=== PATIENT | female | born 1985 | race Caucasian/White ===

== ENCOUNTER 2019-07-18 21:00 | Emergency (ER) | payer MEDICARE, MEDICAID ==
[2019-07-18] MEDS ORDERED: Acetaminophen 325 MG TAB ONE (22:38)
[2019-07-18 23:13] LABS: Anion Gap 22 mmol/L (10-20); BUN (Urea Nitrogen) 29 mg/dL (7.0-18.7); Calc. Creatinine Clearance 0 mL/min (70-130); Calcium 9.5 mg/dL (7.8-10.44); Carbon Dioxide 28 mmol/L (22-29); Chloride 91 mmol/L (98-107); Estimated GFR-MDRD 6; Glucose 118 mg/dL (70-105); Potassium 4.2 mmol/L (3.5-5.1); Sodium 137 mmol/L (136-145)
[2019-07-19] MEDS ORDERED: Divalproex Sodium DR 500 MG TAB PO SCH (05:45)
[2019-07-19] MEDS ORDERED: Sevelamer Carbonate 800 MG TAB PO SCH (08:00)
[2019-07-19] MEDS ORDERED: risperiDONE 1 MG TAB ONE (20:48)
[2019-07-20] MEDS ORDERED: Ziprasidone 20 MG CAP PO SCH (07:45)
[2019-07-20] MEDS ORDERED: Divalproex Sodium DR 500 MG TAB PO SCH (07:45)
--- NOTE | 2019-07-20 10:21 | CON ---
DATE OF CONSULTATION: HISTORY OF PRESENT ILLNESS: Ms. Key is a 34-year-old white female with ESRD, and then, currently at the ER hold and the plan is to transfer her to [facility]. She has been having suicidal ideation. We are consulted for maintenance hemodialysis. I have scheduled her for hemodialysis this a.m. She voices no new complaints today. PHYSICAL EXAMINATION: VITAL SIGNS: Blood pressure is noted at 109/74, heart rate 92, respiratory rate 18, O2 saturation 93%. GENERAL: Awake, alert, comfortable, ambulatory, not in distress. SKIN: Adequate turgor. HEENT: She has pinkish conjunctivae. Anicteric sclerae. NECK: No neck mass. No carotid bruits. No JVD. CHEST: No deformities. LUNGS: Clear breath sounds. HEART: Normal sinus rhythm. No murmur. No gallops. No rubs. ABDOMEN: Globular, soft, nontender. No masses. EXTREMITIES: No edema. No deformities. MEDICATIONS: Medications of July 20, 2019, reviewed. LABORATORY DATA: Laboratories of July 18, 2019; sodium 137, potassium 4.2, chloride 91, carbon dioxide 28, BUN 29, creatinine 7.86, glucose 118, calcium 9.5. ASSESSMENT/PLAN: 1. Suicidal ideation-transfer to inpatient psychiatric hospital in [place]. Continue supportive care. 2. End-stage renal disease, stable. We will continue current Thursday, Thursday, and Thursday hemodialysis. Fluid removal only as tolerated by this patient. Overall, agree with current management. Job ID: [id number]
--- NOTE | 2019-07-22 09:32 | PRG ---
DATE OF SERVICE: 07/22/2019 SUBJECTIVE: Ms. Key is a 34-year-old white female with ESRD, on maintenance hemodialysis. She is undergoing hemodialysis. She is currently at the ER hold for possible transfer to [facility] in [place] due to suicidal ideation. No new complaints today. She is currently tolerating dialysis. OBJECTIVE: VITAL SIGNS: Blood pressure is noted at 120/70, heart rate 70. GENERAL: Awake, alert, comfortable, not in distress. SKIN: Adequate turgor. HEENT: She has a pinkish conjunctivae. Anicteric sclerae. NECK: No neck mass. No carotid bruits. No JVD. CHEST: No deformities. LUNGS: Clear breath sounds. HEART: Normal sinus rhythm. No murmur. No gallops. No rubs. ABDOMEN: Globular, soft, nontender, no masses. EXTREMITIES: No edema, no deformities. MEDICATIONS: Medications of July 22, 2019, reviewed. LABORATORY DATA: July 18, 2019, BUN 29, creatinine 7.86, potassium 4.2. ASSESSMENT AND PLAN: 1. Endstage renal disease-tolerating hemodialysis. Continue Thursday, Thursday, and Thursday dialysis with this patient. Fluid removal as tolerated. 2. Suicidal ideation for transfer to inpatient psychiatry in [place]. Awaiting bed placement. 3. Agree with current management. Job ID: [id number]
[2019-07-22] MEDS ORDERED: Divalproex Sodium DR 500 MG TAB PO SCH (18:30)
[2019-07-23 05:36] LABS: Mean Corpuscular HGB CONC 33.2 g/dL (32.0-36.0); Mean Corpuscular Hemoglobin 33.2 pg (27.0-31.0); Mean Platelet Volume 8.4 fL (7.4-10.4); Platelet Count 135 thou/uL (130-400); RBC Distribution Width 12.3 % (11.5-14.5); White Blood Cell (WBC) Count 10.7 thou/uL (4.8-10.8)
[2019-07-23 05:42] LABS: Anion Gap 15 mmol/L (10-20); BUN (Urea Nitrogen) 34 mg/dL (7.0-18.7); Calc. Creatinine Clearance 0 mL/min (70-130); Calcium 8.2 mg/dL (7.8-10.44); Carbon Dioxide 28 mmol/L (22-29); Chloride 98 mmol/L (98-107); Estimated GFR-MDRD 7; Glucose 87 mg/dL (70-105); Sodium 136 mmol/L (136-145)
[2019-07-23 06:09] LABS: Band 1 % (5-11); Eosinophils 9 % (0-10); Lymphocytes 16 % (21-51); MDiff Complete? YES; Monocytes 14 % (0-10); Neutrophil 60 % (42-75); Platelet Morphology Comment Appears Adequate
[2019-07-23] MEDS ORDERED: Divalproex Sodium DR 500 MG TAB PO SCH (09:00)
[2019-07-24] MEDS ORDERED: risperiDONE 1 MG TAB PO SCH (21:30)
--- NOTE | 2019-07-25 09:28 | PRG ---
DATE OF SERVICE: 07/25/2019 SERVICE: Renal Medicine. SUBJECTIVE: Ms. Key is a 34-year-old white female with known history of ESRD and currently on maintenance hemodialysis. She is down in the emergency room and awaiting transfer to [facility] for inpatient psychiatry. She is currently undergoing dialysis. She is tolerating said procedure. No other complaints. No chest pain or shortness of breath. OBJECTIVE: VITAL SIGNS: Blood pressure 120/87, heart rate 75. GENERAL: Awake, alert, and comfortable, not in distress. SKIN: Adequate turgor. HEENT: She has pinkish conjunctivae. Anicteric sclerae. NECK: No neck mass. No carotid bruits. No JVD. CHEST: No deformities. LUNGS: Clear breath sounds. No wheezing. No crackles. HEART: Normal sinus rhythm. No murmur. No gallops. No rubs. ABDOMEN: Globular, soft, nontender. No masses. EXTREMITIES: No edema. No deformities. MEDICATIONS: Medications of July 25, 2019, were reviewed. LABORATORY DATA: Laboratories of July 23, 2019; white count 10.7, hemoglobin 11. Sodium 136, potassium 5, chloride 98, carbon dioxide 28, BUN 34, creatinine 6.54, glucose 87, calcium 8.2. ASSESSMENT AND PLAN: 1. End-stage renal disease, stable. We will continue current Thursday, Thursday, and Thursday hemodialysis. Fluid removal only as tolerated. 2. Suicidal ideation-for possible transfer to [facility] for inpatient psychiatric placement. 3. Agree with current management. Job ID: [id number]
[2019-07-25] MEDS ORDERED: risperiDONE 1 MG TAB PO SCH (18:30)
== END 2019-07-26 02:21 | disposition short-term general hospital (02) ==
LOC: ERS 21:00
DX: F32.9 Major depressive disorder, single episode, unspecified (principal); I12.0 Hypertensive chronic kidney disease with stage 5 chronic kidney disease or end stage renal disease; N18.6 End stage renal disease; E78.5 Hyperlipidemia, unspecified; F31.9 Bipolar disorder, unspecified; F43.10 Post-traumatic stress disorder, unspecified; Z79.899 Other long term (current) drug therapy; Z99.2 Dependence on renal dialysis
CPT/HCPCS: 36415; 80048; 85025; 90935; G0257

== ENCOUNTER 2019-10-27 17:29 | Observation (INO) | payer MEDICARE, MEDICAID ==
[2019-10-27 18:07] LABS: #Basophils 0.1 thou/uL (0.0-0.2); #Eosinphils 0.7 thou/uL (0.0-0.7); #Lymphocytes 1.5 thou/uL (1.20-3.40); #Monocytes 1.1 thou/uL (0.11-0.59); #Neutrophils 7.8 thou/uL (1.40-6.50); %Basophils 0.8 % (0.0-1.0); %Eosinophils 6.3 % (0.0-10.0); %Lymphocytes 13.7 % (21.0-51.0); %Monocytes 9.9 % (0.0-10.0); %Neutrophils 69.4 % (42.0-75.0); Hemoglobin 12.6 g/dL (12.0-16.0); Mean Corpuscular HGB CONC 32.3 g/dL (32.0-36.0); Mean Corpuscular Hemoglobin 32.4 pg (27.0-31.0); Platelet Count 280 thou/uL (130-400); RBC Distribution Width 12.6 % (11.5-14.5); White Blood Cell (WBC) Count 11.2 thou/uL (4.8-10.8)
--- NOTE | 2019-10-27 18:12 | RAD ---
Chest one view HISTORY: Dyspnea. COMPARISON: 02/21/2019. FINDINGS: Cardiac silhouette and pulmonary vasculature are unremarkable. Mediastinum is midline. [place] llic stents over the right axillary and subclavian vessels. No lobar consolidation or evidence of pneumothorax. Fluid and gaseous distention of the stomach. IMPRESSION: No active cardiopulmonary abnormalities are demonstrated.
[2019-10-27] MEDS ORDERED: Ondansetron ODT 4 MG TAB ONE (19:51)
[2019-10-27 19:56] LABS: ALT (SGPT) 10 U/L (8-55); AST (SGOT) 16 U/L (5-34); Albumin 4.4 g/dL (3.5-5.0); Alkaline Phosphatase 91 U/L (40-110); Anion Gap 29 mmol/L (10-20); BUN (Urea Nitrogen) 59 mg/dL (7.0-18.7); Bilirubin, Total 0.4 mg/dL (0.2-1.2); Calc. Creatinine Clearance 0 mL/min (70-130); Calcium 8.8 mg/dL (7.8-10.44); Carbon Dioxide 21 mmol/L (22-29); Chloride 94 mmol/L (98-107); Estimated GFR-MDRD 3; Globulin 3.5 g/dL (2.4-3.5); Glucose 86 mg/dL (70-105); Potassium 6.3 mmol/L (3.5-5.1); Protein, Total 7.9 g/dL (6.0-8.3); Sodium 138 mmol/L (136-145)
[2019-10-27] MEDS ORDERED: Dextrose 50% Abboject 50 ML SYRINGE ONE (20:28)
[2019-10-27] MEDS ORDERED: Insulin Regular 300 UNITS/3 ML VIAL ONE ×2 (20:28→20:31)
[2019-10-27] MEDS ORDERED: Calcium Chloride 1 GM/10 ML Abboject SYRINGE ONE (20:28)
[2019-10-27 23:06] LABS: Anion Gap 30 mmol/L (10-20); BUN (Urea Nitrogen) 59 mg/dL (7.0-18.7); Calc. Creatinine Clearance 0 mL/min (70-130); Carbon Dioxide 21 mmol/L (22-29); Chloride 93 mmol/L (98-107); Estimated GFR-MDRD 3; Glucose 70 mg/dL (70-105); Potassium 6.5 mmol/L (3.5-5.1); Sodium 137 mmol/L (136-145)
[2019-10-27] MEDS ORDERED: Insulin Regular 300 UNITS/3 ML VIAL IVP SCH (23:45)
[2019-10-27] MEDS ORDERED: Acetaminophen 500 MG TAB ONE (23:51)
[2019-10-27] MEDS ORDERED: Calcium Gluconate 4.6 MEQ in Sodium Chloride 0.9% 100 ML IVPB SCH (23:59)
[2019-10-28] MEDS ORDERED: Guaifenesin DM 100-10/5 ML UDCUP PO PRN (00:11)
[2019-10-28] MEDS ORDERED: Acetaminophen 325 MG TAB PO PRN (00:11)
[2019-10-28] MEDS ORDERED: Bisacodyl 10 MG SUPP PR PRN (00:11)
[2019-10-28] MEDS ORDERED: hydrALAZINE 20 MG/ML VIAL SLOW IVP PRN (00:11)
[2019-10-28] MEDS ORDERED: cloNIDine 0.1 MG TAB PO PRN (00:11)
[2019-10-28] MEDS ORDERED: Bisacodyl 5 MG TAB PO PRN (00:11)
[2019-10-28] MEDS ORDERED: Promethazine HCl 12.5 MG in Sodium Chloride 0.9% 50 ML IVPB PRN (00:11)
[2019-10-28] MEDS ORDERED: Benzonatate 100 MG CAP PO PRN (00:14)
--- NOTE | 2019-10-28 00:14 | PDOC.HHP ---
Hospitalist HPI - History of Present Illness Cough, eye discharge, congestion History of Present Illness: Patient is a 34 year old female with PMH ESRD, [place] syndrome who presents to ED for cough, congestion, eye discharge, malaise/fatigue, rhinorrhea, myalgias. Patient receives HD MWF w/ Dr Evans, missed her HD session last scheduled session due to symptoms. In ED, patient noted to have HTN w/ SBP in 170s, also labs significant for hyperkalemia to 6.3, EKG reviewed by me, was noted at the time to be sinus, rate 94 w/ slightly peaked T waves, treated in ED with calcium chloride, repeat value checked and is 6.5 now, WBC 11, CO2 21, BUN 59, flu a/b negative, CXR checked and without acute processes Dr Evans consulted by ED and requested kayexelate with plan for dialysis in aM, patient admitted to [facility] for further workup. ED Course: Current meds DULoxetine Sofia Oct 27, 2019 19:27 JOHN Cueva Victoria capsule,delayed release(DR/EC) : Strength - 20 mg : ORAL Patient Dose: 20 mg Oral 2 times a day. QUEtiapine Sofia Oct 27, 2019 19:28 JOHN Cueva Victoria tablet : Strength - 300 mg : ORAL Patient Dose: 300 mg Oral once a day (at bedtime). doxycycline hyclate oral ThuOct 27, 2019 19:28 JOHN Cueva Victoria tablet : Strength - 100 mg : ORAL Patient Dose: 100 mg Oral 2 times a day. VITAL SIGNS ThuOct 27, 2019 23:55 JOHN Cueva Victoria BP: 179/104 MAP: 129 Pulse: 81 Resp: 19 Temp: 97.9 (Oral) Pain: 8 O2 sat: 99 on (Room Air) Time: 10/27/2019 23:55. Hospitalist ROS - Review of Systems Constitutional: reports: sweats, weakness, malaise. denies: fever, chills Eyes: reports: other (bilateral discharge). denies: pain, vision change ENT: reports: nose discharge, nose congestion, throat pain. denies: mouth pain , mouth swelling, throat swelling Respiratory: reports: cough. denies: shortness of breath, pleuritic pain Cardiovascular: denies: chest pain, palpitations Gastrointestinal: reports: nausea, vomiting, diarrhea. denies: abdominal pain Musculoskeletal: reports: other (diffuse myalgia) Skin: denies: rash, lesions Neurological: denies: weakness, numbness All other systems reviewed; all pertinent +/- noted in HPI/Subj Hospitalist History - Past Medical History Other Medical History: el syndrome ESRD, MWF, HD congenital heart defect pancreatitis HLD - Past Surgical History Other Surgical History: Surgical history of spinal surgery, 2 peritoneal dialysis catheter placements that were later removed due to infection. hemodialysis port placement <LT>AMP> removal., Surgical history of dialysis shunt, to the right upper extremity, Notes: PT ALSO HAS SHUNT IN E THAT IS NO LONGER WORKING, Surgical history of oophorectomy, of the right ovary, Surgical history of orthopedic surgery, RIGHT HIP, Surgical history of thyroidectomy, Date of surgery 2016. - Family History Family History: reports: no pertinent history - Social History Other Social History: Patient denies alcohol use, Patient denies drug use, Patient has no smoking history, Lives in [facility], Name of institution [facility]. verified on 07/02/19. - Exam General Appearance: NAD, awake alert Eye: PERRL, anicteric sclera ENT: normocephalic atraumatic, no oropharyngeal lesions, moist mucosa Neck: supple, symmetric, no JVD, no thyromegaly, no lymphadenopathy, no carotid bruit Heart: RRR, no murmur, no gallops, no rubs, normal peripheral pulses Respiratory: CTAB, no wheezes, no rales, no ronchi, normal chest expansion, no tachypnea, normal percussion Gastrointestinal: soft, non-tender, non-distended, normal bowel sounds, no palpable masses, no hepatomegaly, no splenomegaly, no bruit Extremities: no cyanosis, no clubbing, no edema Skin: normal turgor, no lesions, no rashes Neurological: cranial nerve grossly intact, normal sensation to touch, no weakness, no focal deficits, no new deficit Musculoskeletal: normal tone, normal strength, no muscle wasting Psychiatric: normal affect, normal behavior, A&O x 3 Hospitalist Results - Labs Result Diagrams: 10/27/19 17:58 10/27/19 22:42 Lab results: WBC 11.2 thou/uL (4.8-10.8) H 10/27/19 17:58 Hgb 12.6 g/dL (12.0-16.0) 10/27/19 17:58 Hct 39.2 % (36.0-47.0) 10/27/19 17:58 MCV 100.0 fL (78.0-98.0) H 10/27/19 17:58 Plt Count 280 thou/uL (130-400) 10/27/19 17:58 Neutrophils % 69.4 % (42.0-75.0) 10/27/19 17:58 Sodium 137 mmol/L (136-145) 10/27/19 22:42 Potassium 6.5 mmol/L (3.5-5.1) H 10/27/19 22:42 Chloride 93 mmol/L (98-107) L 10/27/19 22:42 Carbon Dioxide 21 mmol/L (22-29) L 10/27/19 22:42 BUN 59 mg/dL (7.0-18.7) H 10/27/19 22:42 Creatinine 13.99 mg/dL (0.6-1.1) H 10/27/19 22:42 Glucose 70 mg/dL (70-105) 10/27/19 22:42 Calcium 9.0 mg/dL (7.8-10.44) 10/27/19 22:42 Total Bilirubin 0.4 mg/dL (0.2-1.2) 10/27/19 17:56 AST 16 U/L (5-34) 10/27/19 17:56 ALT 10 U/L (8-55) 10/27/19 17:56 Alkaline Phosphatase 91 U/L (40-110) 10/27/19 17:56 Troponin I Less than 0.010 ng/mL (< 0.028) 10/27/19 17:58 Serum Total Protein 7.9 g/dL (6.0-8.3) 10/27/19 17:56 Albumin 4.4 g/dL (3.5-5.0) 10/27/19 17:56 Hospitalist H&P A/P - Plan Plan: Patient is a 34 year old female with PMH ESRD, El syndrome who presents to ED for cough, congestion, eye discharge, malaise/fatigue, rhinorrhea, myalgias. # viral URI - cough, congestion, eye discharge, malaise/fatigue, rhinorrhea, myalgias most likely due to viral UTI, flu checked and negative, continue supportive care # ESRD w/ missed HD - causing patient HTN, hyperkalemia, acidosis, Dr Evans consulted and plans for HD in AM # Hyperkalemia - due to missed HD, got Calcium chloride and calcium gluconate in ED, repeat K 6.5, give insulin/d50, repeat w/ aM labs, Dr Evans to dialyze in AM # metabolic acidosis - due to missed HD, resume in AM # HTn - likely volume overload due to missed HD, no peripheral or pleurla edema - PRN HTN meds - dialyze in AM # WBC - likely leukemoid reaction to viral URI
[2019-10-28] MEDS: Dextrose 50% Abboject 50 ML SYRINGE SLOW IVP SCH ×2 (01:07→04:58)
[2019-10-28 01:18] VITALS: BMI 30.1
[2019-10-28] MEDS: Ondansetron PF 4 MG/2 ML Vial IVP PRN ×2 (01:18→08:25)
[2019-10-28] MEDS: HYDROcodone/Acetaminophen 5/325 mg Tablet PO PRN ×2 (01:18→08:25)
[2019-10-28 04:55] LABS: #Basophils 0.1 thou/uL (0.0-0.2); #Eosinphils 0.3 thou/uL (0.0-0.7); #Lymphocytes 1.1 thou/uL (1.20-3.40); #Monocytes 0.8 thou/uL (0.11-0.59); #Neutrophils 8.3 thou/uL (1.40-6.50); %Basophils 0.6 % (0.0-1.0); %Eosinophils 2.8 % (0.0-10.0); %Lymphocytes 10.5 % (21.0-51.0); %Monocytes 7.9 % (0.0-10.0); %Neutrophils 78.3 % (42.0-75.0); Hemoglobin 11.1 g/dL (12.0-16.0); Mean Corpuscular HGB CONC 32.2 g/dL (32.0-36.0); Mean Corpuscular Hemoglobin 32.5 pg (27.0-31.0); Mean Platelet Volume 8.1 fL (7.4-10.4); Platelet Count 232 thou/uL (130-400); RBC Distribution Width 12.7 % (11.5-14.5); Red Blood Cell (RBC) Count 3.41 mill/uL (4.20-5.40); White Blood Cell (WBC) Count 10.6 thou/uL (4.8-10.8)
[2019-10-28 05:17] LABS: Anion Gap 26 mmol/L (10-20); BUN (Urea Nitrogen) 62 mg/dL (7.0-18.7); Calc. Creatinine Clearance 5 mL/min (70-130); Calcium 9.6 mg/dL (7.8-10.44); Carbon Dioxide 23 mmol/L (22-29); Chloride 97 mmol/L (98-107); Estimated GFR-MDRD 3; Glucose 93 mg/dL (70-105); Magnesium 2.6 mg/dL (1.6-2.6); Potassium 4.9 mmol/L (3.5-5.1); Sodium 141 mmol/L (136-145)
[2019-10-28 05:28] LABS: Phosphorus 12.5 mg/dL (2.3-4.7)
[2019-10-28] MEDS ORDERED: Levothyroxine Sodium 50 MCG TAB PO SCH (06:00)
[2019-10-28] MEDS ORDERED: Heparin 5,000 UNITS/ML VIAL SC SCH (09:00)
[2019-10-28] MEDS ORDERED: Polyethylene Glycol 3350 17 GM Packet PO SCH (09:00)
[2019-10-28] MEDS ORDERED: LURASIDONE HCL PO SCH (09:00)
[2019-10-28] MEDS ORDERED: Mirtazapine 15 MG TAB PO SCH (09:00)
--- NOTE | 2019-10-28 10:23 | CON ---
DATE OF CONSULTATION: HISTORY OF PRESENT ILLNESS: Ms. 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 She has generalized malaise. At the ER, she was given Kayexalate, insulin, and calcium gluconate for the elevated potassium. We are now following up this patient for management of her ESRD. She is currently undergoing hemodialysis. My plan is to do a 3-1/2 hour dialysis with this patient using 2.0 potassium bath. REVIEW OF SYSTEMS: Positive for generalized malaise, appetite is decreased. No nausea. No vomiting. Denies any fever or chills. No productive cough. No syncopal episode. No gross hematuria. No dysuria. No urinary frequency. No abdominal pain. No diarrhea. No hematochezia. No melena. No abdominal pain. No headache. MEDICATION: 1. Duloxetine 20 mg b.i.d. 2. Quetiapine 300 mg daily. 3. Doxycycline 100 mg b.i.d. PAST MEDICAL HISTORY: 1. ESRD from chronic glomerulonephritis. 2. Status post [place] syndrome. 3. ? of bipolar disorder. PAST SURGICAL HISTORY: Status post parathyroidectomy, status post right hip surgery, status post exploratory laparotomy with oophorectomy, status post AV fistula placement, status post cuffed hemodialysis catheter placement. SOCIAL HISTORY: The patient is single, lives with her mother. No children. Education, high school. Medically disabled. Status post multiple blood transfusions. No IV drug abuse. No smoking. No alcohol intake. ALLERGIES: UNKNOWN. TRAUMA: None. IMMUNIZATION: Up-to-date. HOSPITALIZATIONS: Please see past medical history. FAMILY HISTORY: No family history of ESRD. PHYSICAL EXAMINATION: VITAL SIGNS: Blood pressure 148/97, heart rate 99, respiratory rate 18, temperature 98.5, pulse ox 96%. GENERAL: Noted to be awake, alert, comfortable, not in distress. SKIN: Adequate turgor. HEENT: She has a pinkish conjunctivae. Anicteric sclerae. NECK: No neck mass. No carotid bruits. No JVD. CHEST: No deformities. LUNGS: Clear breath sounds. HEART: Normal sinus rhythm. No murmur. No gallops. No rubs. ABDOMEN: Globular, soft, nontender, no masses. EXTREMITIES: No edema. No deformities. LABORATORY DATA: Laboratories of October 28, 2019; sodium 141, potassium 4.9, chloride 97, carbon dioxide 23, BUN 62, creatinine 14.95, phosphorus 12.5, magnesium 2.6. White count 10.6, hemoglobin 11.1. ASSESSMENT AND PLAN: 1. Hyperphosphatemia. Start Renvela 800 mg 2 tablets t.i.d. with meals. 2. End-stage renal disease, hemodialysis today for 3-1/2 hours. Fluid removal as tolerated by the patient. 3. Chronic anemia. No indication for any Epogen at the present time. Please note, this patient has history of noncompliance. She has been missing her phosphate binders as well as skipping dialysis from [id number]. For the moment, agree with current management. Job ID: [id number] [facility] CENTERCarl
[2019-10-28] MEDS ORDERED: Sevelamer Carbonate 800 MG TAB PO SCH (12:00)
[2019-10-28] MEDS ORDERED: Calcium Acetate 667 MG CAP PO SCH (12:00)
[2019-10-28 13:24] VITALS: BP 111/68; TEMP 98
--- NOTE | 2019-10-29 02:01 | DIS ---
DATE OF ADMISSION: 10/27/2019 DATE OF DISCHARGE: 10/28/2019 DISCHARGE DIAGNOSES: As of the followin. Hyperkalemia secondary to missed dialysis. 2. Upper respiratory viral infection. 3. End-stage renal disease, on dialysis, missed dialysis. 4. Metabolic acidosis. 5. Hypertension. HOSPITAL COURSE: The patient is a 34-year-old female, who initially presented to the hospital with complaints of upper respiratory tract symptoms. At this time, her influenza was negative. She was noted to have hyperkalemia. She underwent dialysis and she was found to have high phosphorus levels. The patient was put on Renvela per Nephrology. I did speak with Nephrology okay to discharge the patient home. She will follow up with her normal dialysis and also with her primary. DISCHARGE MEDICATIONS: 1. Quetiapine 300 mg at bedtime. 2. Duloxetine 20 mg twice daily. 3. Latuda 1 daily. 4. Levothyroxine 50 mcg daily. 5. Mirtazapine 1 p.o. daily. 6. Protonix 40 mg daily. 7. Toprol 50 mg daily. 8. Renvela 1600 mg p.o. t.i.d. PHYSICAL EXAMINATION: VITAL SIGNS: Temperature 98.0, 79, 16, 100% on room air, 111/68. GENERAL: She is awake, alert, and oriented x3. Does not appear in distress. CV: S1, S2 present. No murmurs, rubs, gallops. ABDOMEN: Soft and nontender. Bowel sounds are present x2. Job ID: [id number]
--- NOTE | 2019-10-29 13:58 | EKG ---
Test Reason : Blood Pressure : / mmHG Vent. Rate : 094 BPM Atrial Rate : 094 BPM P-R Int : 120 ms QRS Dur : 080 ms QT Int : 346 ms P-R-T Axes : 023 067 029 degrees QTc Int : 432 ms Normal sinus rhythm Normal ECG Peaked T waves Confirmed by STACY BENEDICT DO ([id number]), editor magazine CARI GASTELUM ([id number]) on 10/29/2019 1:58:21 PM Referred By: Confirmed By:STACY BENEDICT DO
== END 2019-10-28 16:32 | disposition home or self-care (01) ==
LOC: ERS 17:29 → 2SW 21:46
PROVIDERS: ADMIT Internal Medicine; ATTEND Internal Medicine
DX: E87.5 Hyperkalemia (principal); J06.9 Acute upper respiratory infection, unspecified; I12.0 Hypertensive chronic kidney disease with stage 5 chronic kidney disease or end stage renal disease; N18.6 End stage renal disease; D63.1 Anemia in chronic kidney disease; E87.2 Acidosis; E78.5 Hyperlipidemia, unspecified; Q24.9 Congenital malformation of heart, unspecified; Q87.19 Other congenital malformation syndromes predominantly associated with short stature; Z79.899 Other long term (current) drug therapy; Z88.1 Allergy status to other antibiotic agents; Z88.8 Allergy status to other drugs, medicaments and biological substances; Z99.2 Dependence on renal dialysis
CPT/HCPCS: 71045; 80048 ×2; 80053; 82962; 83735; 84100; 84484; 85025 ×2; 87804 ×2; 93005; 96365; 96375 ×2; 96376; 99285; G0378 ×3; 36415; 36416; 90935; 96374; G0257; J1815; J2405; J2550; J3490; Q0162

== ENCOUNTER 2019-10-30 14:10 | Emergency (ER) | payer MEDICARE, MEDICAID ==
[2019-10-30 15:14] LABS: #Basophils 0.1 thou/uL (0.0-0.2); #Eosinphils 0.4 thou/uL (0.0-0.7); #Neutrophils 10.9 thou/uL (1.40-6.50); %Basophils 0.6 % (0.0-1.0); %Eosinophils 3.2 % (0.0-10.0); %Lymphocytes 7.4 % (21.0-51.0); %Monocytes 7.2 % (0.0-10.0); %Neutrophils 81.5 % (42.0-75.0); Hemoglobin 12.2 g/dL (12.0-16.0); Mean Corpuscular HGB CONC 33.3 g/dL (32.0-36.0); Mean Corpuscular Hemoglobin 33.5 pg (27.0-31.0); Mean Platelet Volume 7.6 fL (7.4-10.4); Platelet Count 232 thou/uL (130-400); RBC Distribution Width 12.1 % (11.5-14.5); Red Blood Cell (RBC) Count 3.63 mill/uL (4.20-5.40); White Blood Cell (WBC) Count 13.3 thou/uL (4.8-10.8)
[2019-10-30] MEDS ORDERED: Ondansetron PF 4 MG/2 ML Vial ONE (15:23)
[2019-10-30 15:38] LABS: ALT (SGPT) 8 U/L (8-55); AST (SGOT) 17 U/L (5-34); Albumin 4.2 g/dL (3.5-5.0); Alkaline Phosphatase 74 U/L (40-110); Anion Gap 24 mmol/L (10-20); BUN (Urea Nitrogen) 42 mg/dL (7.0-18.7); Bilirubin, Total 0.3 mg/dL (0.2-1.2); Calc. Creatinine Clearance 0 mL/min (70-130); Calcium 8.5 mg/dL (7.8-10.44); Carbon Dioxide 24 mmol/L (22-29); Chloride 93 mmol/L (98-107); Estimated GFR-MDRD 4; Globulin 3.7 g/dL (2.4-3.5); Glucose 79 mg/dL (70-105); Lipase 38 U/L (8-78); Potassium 5.5 mmol/L (3.5-5.1); Protein, Total 7.9 g/dL (6.0-8.3); Sodium 135 mmol/L (136-145)
[2019-10-30 16:00] LABS: BHCG - Serum POSITIVE (NEGATIVE); Pregs Control Background? CLEAR/WHITE (CLR/WHITE); Pregs Control Bar Appear? YES (CONTROL BAR)
[2019-10-30 16:51] LABS: Bacteria/HPF 4+ HPF (None Seen); Bilirubin Negative (Negative); Blood, Urine Trace (Negative); Clarity Turbid (Clear); Glucose, Urine (Dipstick) Normal (Negative); Leukocyte 25 Leu/uL (Negative); Nitrite Negative (Negative); Protein, Urine (Dipstick) 100 mg/dL (Neg-Trace); RBC/HPF 0-3 HPF (0-3); Squamous Epithelial Greater than 50 HPF (0-3); Urobilinogen Normal mg/dL (Less than 2)
--- NOTE | 2019-10-30 17:27 | ULT ---
Ultrasound pelvis Doppler duplex: DATE: 10/30/2019 HISTORY: 34-year-old female "new , abdominal pain" TECHNIQUE: Transabdominal transducer used to evaluate intrapelvic contents with grayscale, color-flow, and spect ral analysis. Patient refused transvaginal ultrasound. FINDINGS: The uterus measures approximately 7.5 x 3.5 x 5.5 cm. Myometrial detail is poorly visualized, and the endometrial stripe is not visualized at all, because patient's bladder was not full, and because transvaginal ultrasound was not performed. In the right adnexa, there is an approximately 3 x 2.5 x 2.5 cm structure with heterogeneously hypere choic center, and heterogeneously hypoechoic rim. Except for the hyperechoic center, this structure resembles a right ovary. However, no blood flow is demonstrated in this structure. Left ovary measures 3.5 x 2 x 2.5 cm, and has blood flow demonstrated by Doppler. No left ovarian cys t. No moderate or large volume of free fluid in the cul-de-sac identified, although the cul-de-sac is po dawit visualized. IMPRESSION: 1. Limited study, with very poor visualization of the uterus. 2. Despite patient's statement that she had a right oophorectomy, there is a 3 cm structure in the ri ght adnexa that somewhat resembles a right ovary, with an abnormal hyperechoic center, and no blood flow detected. 3. Normal left ovary.
--- NOTE | 2019-10-30 18:38 | ULT ---
Ultrasound transvaginal: DATE: 10/30/2019 HISTORY: 34-year-old female with "new , concern for ectopic " FINDINGS: A single image has been submitted labeled as "patient unable to tolerate". IMPRESSION: Aborted, nondiagnostic attempted transvaginal ultrasound.
--- NOTE | 2019-10-30 19:32 | CT ---
CT ABDOMEN NONCONTRAST CT PELVIS NONCONTRAST: (Urolithiasis protocol) DATE: 10/30/2019 HISTORY: 34-year-old female with nausea and emesis, dysuria, and diarrhea. COMPARISON: 11/15/2017 TECHNIQUE: IV injection of iodinated contrast media: None Oral contrast media: None FINDINGS: Other than for urolithiasis, the lack of IV and oral contrast limits the evaluation. No normal kidney is visualized in the renal fossa bilaterally. In the right medial pelvic inlet, there is a 5.5 x 2.5 x 2 cm ovoid mass extensive parenchymal calcif ications throughout, which is probably a pelvic kidney riddled with dystrophic calcifications or nephrocalcinosis. No hydronephrosis. In the left retroperitoneum at the L3 level, again noted is the approximately 1.3 x 1.7 cm cystic les ion. This may or may not represent a cyst within the extremely hypoplastic kidney. This is unchanged. Within a normal-sized right ovary, again noted is the tiny round 0.6 cm focal fat density questionabl e for a tiny teratoma. No colonic diverticulitis, ascites, pneumoperitoneum, or small bowel dilation. Within the limitations of a noncontrast scan, no major pathology identified involving abdom inal aorta, liver, pancreas, or spleen. Narrow acute angle between the proximal SMA and abdominal aorta. The third stage of the duodenum to the right of this is mildly dilated, while the third stages of the duodenum distal to this is very narrow. This is unchanged. Lung bases are grossly clear. Urinary bladder is decompressed and unremarkable. Diffuse heterogeneous attenuation of all osseous structures. IMPRESSION: 1) absence of normal kidneys. 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 3) appearance of duodenum and superior mesenteric artery raises the possibility of SMA syndrome. Clin ical correlation recommended. 4) no acute findings and no interval change. 5) evidence for renal osteodystrophy
[2019-10-30] MEDS ORDERED: Ondansetron ODT 8 MG TAB ONE (20:48)
== END 2019-10-30 21:26 | disposition home or self-care (01) ==
LOC: ERS 14:10
DX: R11.2 Nausea with vomiting, unspecified (principal); E87.5 Hyperkalemia; E78.5 Hyperlipidemia, unspecified; I12.0 Hypertensive chronic kidney disease with stage 5 chronic kidney disease or end stage renal disease; N18.6 End stage renal disease; F31.9 Bipolar disorder, unspecified; F43.10 Post-traumatic stress disorder, unspecified; Z79.899 Other long term (current) drug therapy
CPT/HCPCS: 36415; 74176; 76856; 80053; 81003; 81015; 83605; 83690; 84702; 84703; 85025; 93976; J2405